=== PATIENT | female | born 1975 | race Caucasian/White ===

== ENCOUNTER 2023-10-12 08:48 | Observation (INO) | payer SELFPAY, OTHER ==
--- NOTE | 2023-10-03 11:32 | PCM.HP.BLA ---
History and Physical Date of Admission: 10/12/23 HPI: The patient is a 48 year old female presenting for pre-operative visit. She is scheduled for LAVH and bilateral salpingectomy, for adenomyosis, dyspareunia on 10/12/23. Procedure discussed along with risks, benefits and complications. Other alternatives discussed for management. Consent form signed? Yes. ? ? PAST MEDICAL HISTORY PAST MEDICAL HISTORY Diagnosis Date ? Uterine prolapse ? ? ? PAST SURGICAL HISTORY PAST SURGICAL HISTORY Procedure Laterality Date ? HIATAL HERNIA REPAIR HX ? 2019 ? REMOVAL GALLBLADDER ? 2001 ? ? ? CURRENT MEDICATIONS No current outpatient medications on file. ? No current facility-administered medications for this visit. ? ? ALLERGIES: Patient has no known allergies. ? PERSONAL HISTORY: SOCIAL HISTORY Social History ? Tobacco Use ? Smoking status: Never ? Smokeless tobacco: Never Vaping Use ? Vaping Use: Never used Substance Use Topics ? Alcohol use: Never ? Drug use: Never ? FAMILY HISTORY: FAMILY HISTORY FAMILY HISTORY Problem Relation Age of Onset ? No Known Problems Mother ? ? No Known Problems Father ? ? Breast Cancer Maternal Aunt ? ? Breast Cancer Maternal Aunt ? ? Colon Cancer Maternal Uncle ? ? Colon Cancer Maternal Grandmother ? ? ? REVIEW OF SYMPTOMS: GENERAL: denies fevers or chills ENDOCRINOLOGY: has not been on steroids Cardiology : denies palpitations or chest pain Respiratory: denies SOB or cough Hematology: denies history of prolonged bleeding or easy bruising or VTE Allergy: Denies history of personal or family history of allergy to anesthesia ? PHYSICAL EXAMINATION: ? VITALS: Blood pressure 110/68, pulse 68, resp. rate 16, height 5' 2 (1.575 m), weight 196 lb (88.9 kg), last menstrual period 09/16/2023, SpO2 97%. ? GENERAL: The patient is well nourished, well hydrated in no acute distress. , The patient is oriented to time, place, and person. NECK: Supple. No lynphadenopathy, normal thyroid, no thyromegaly. LUNGS: Clear to auscultation bilaterally. no wheezes, rhonchi or rales HEART: Regular rate and rhythm, Normal heart sounds, and No murmurs or gallops ? IMPRESSION: adenomyosis, symptomatic uterovaginal prolapse, deep dyspareunia ? PLAN: The risks/benefits/alternatives and personal involved for the planned LAVH, bilateral salpignectomy were reviewed with the patient. Her questions were answered to her satisfaction and she desires to proceed. Consent was signed. I reviewed with her postop instructions and expectations. ? Dr. Soto to perform pelvic floor repair after hyst I have reviewed and updated past medical and surgical history, medications and allergies Assessment & Plan Assessment/Plan (1) Adenomyosis: (2) Deep dyspareunia: (3) Cystocele: (4) Rectocele:
[2023-10-04 15:26] LABS: Hematocrit 44.4 % (37-47); Hemoglobin 14.2 g/dL (12.0-15.0); Mean Corpuscular Hgb 27.2 pg (27.0-32.0); Mean Corpuscular Volume 85.1 fL (81-99); Platelet Count 259 K/mm3 (150-450); RBC Distribution Width CV 13.7 % (11.6-14.6); RBC Distribution Width SD 42.3 fl (35.1-43.9); Red Blood Count 5.22 M/mm3 (4.2-5.4); White Blood Count 8.8 K/mm3 (4.4-11.0)
[2023-10-04 16:14] LABS: Magnesium 2.2 mg/dL (1.6-2.6)
[2023-10-05 09:04] LABS: Anion Gap 10 (5-15); BUN 12 mg/dL (7-18); BUN/Creat Ratio 14.8 RATIO (10-20); Calcium,Total 8.8 mg/dL (8.5-10.1); Chloride 108 mmol/L (98-107); Creatinine, Serum 0.81 mg/dL (0.55-1.02); EST Glomerular Filtration Rate 80 mL/min (>60); Est Glom Filt Rate - Afr Amer 97 mL/min (>60); Glucose 95 mg/dL (74-106); Potassium 3.8 mmol/L (3.5-5.1); Sodium Level 141 mmol/L (136-145)
[2023-10-12] VITALS (19 sets, daily range): BP systolic 103–129; BP diastolic 55–77; PULSE 70–84; RESP 8–20; TEMP 36.2–37.1; O2SAT 77–100; BMI 36.3
[2023-10-12 06:08] LABS: Internal QC Validated? YES +Cl - CLEAR BKGD; Pregnancy, Urine Negative Negative
[2023-10-12] MEDS: Acetaminophen 500 MG Tablet 1000 MG PO (06:16)
[2023-10-12 06:17] LABS: Bedside Glucose 92 mg/dL (74-106)
[2023-10-12] MEDS: Gabapentin 600 MG Tablet PO (06:17)
[2023-10-12] MEDS: Celecoxib 200 MG Capsule 400 MG PO (06:17)
[2023-10-12] MEDS: Magnesium 1 GM over 15 mins IV (06:23)
[2023-10-12] MEDS: 0.9% Normal Saline (1000mL) 1,000 ML 15 ML IV (06:29)
--- NOTE | 2023-10-12 07:30 | HYST_PTH ---
PATIENT: DEBBI MARTIN LOC: [facility] U#:[id number] AGE/SX: 48/F ROOM: NC317 RE10/12/[address]: Dr. Ayah Prater MD : [id number] BED: 1 DIS: 10/13/2023 SPEC #: [id number] RECD: 10/12/23 12:29 STATUS: ROSA M KRAUS #: [id number] NAWAF: 10/12/23 07:[address]: Ayah Prater DEPT: SURGICAL PATHOLOGY RECD BY: Aditi Roth ENTERED: 10/12/23 12:29 SP TYPE: HYSTERECT OTHR DR: MD Dr. Les Wilde MD Tissues: Uterus, NOS Procedures: Surgery Specimen Level V HEADER OPERATION: ERAS, Hysterectomy, LAVH, Bilateral salpingectomy PRE-OP DIAGNOSIS: Adenomyosis, Deep dyspareunia, Cystocele, Rectocele TISSUE SUBMITTED: Cervix, Uterus, Bilateral fallopian tubes MICROSCOPIC DIAGNOSIS Cervix, Uterus, and fallopian tubes, hysterectomy, bilateral salpingectomy: Cervix - Chronic inflammation. Endometrium - Secretory endometrium. Myometrium - An intramural leiomyoma (0.4cm in greatest dimension). Bilateral fallopian tubes- No pathologic diagnosis. SHAYNE/ 10/13/2023 MICROSCOPIC DESCRIPTION Slides are reviewed. GROSS DESCRIPTION Received in fixative is one container labeled with the patient's name and designated cervix, uterus, fallopian tubes. The specimen consists of a hysterectomy specimen consisting of cervix, uterus and detached bilateral fallopian tubes. The uterus with cervix weighs 145 gm and measures 11.0 x 6.5 x 5.5 cm. The serosal surface is clayton, glistening. The ectocervical mucosa is unremarkable. The external is is oval and patulous in contour. The endocervical canal measures 4 cm in length and the endocervical mucosa is unremarkable. The triangular endometrial cavity measures 5 cm in length and 3 cm in width. The endometrium is congested without any mass lesion and measures 0.1 cm in thickness. Sections of the uterine wall review a small nodular mass measuring 0.4 cm in greatest dimension. Uterine wall measures up to 3cm in thickness. The detached fallopian tubes are not identified as right or left and each measure 3.5cm in length and 0.5 in diameter. The fimbrial end is identified. Sections reveal unremarkable cut surfaces. Technical Sme sections are submitted in 9 cassettes as follows: 1 - anterior cervix, 2 - posterior cervix, 3 & 4 - anterior uterine wall, 5 & 6 - posterior uterine wall, 7 - nodular mass, 8 - one fallopian tube, 9 - second fallopian tube. SHAYNE: 10/12/23 TC:1 CPT: 04741
[2023-10-12] MEDS: Ondansetron 4 MG/2 ML Vial IV (07:37)
[2023-10-12] MEDS: Cefazolin 2 GM in 0.9% Normal Saline (100mL Bag) 100 ML IV (07:37)
[2023-10-12] MEDS: dexAMETHasone 4 MG/ML Vial 8 MG IV (07:37)
[2023-10-12] MEDS: Bupivacaine Mpf 0.5% 30 ML VIAL (08:03)
[2023-10-12] MEDS: Lidocaine 1%/Epi 1:200 (30ml) 30 ML AMPUL (08:35)
[2023-10-12] MEDS: Estrogens,Conj. 1 Tube 1 DOSE (08:35)
--- NOTE | 2023-10-12 08:42 | PCM.OPRPT ---
Problems Associated Problem List Diagnoses (1) Rectocele: (2) Cystocele: Report of Operation Date of Procedure: 10/12/23 Pre-Operative Diagnosis: Incomplete uterovaginal prolapse, stress urinary incontinence Post-Operative Diagnosis: Same Surgery/Procedure Performed:: posterior repair, mid urethral sling insertion, bilateral ureteral catheterization, cystoscopy Surgeon: Aida Soto Type of Anesthesia: General Estimated Blood Loss (mL): 50 cc Description of Procedure: The patient is a 48-year-old with pelvic organ prolapse and stress incontinence who presents for surgical intervention. She underwent a laparoscopic-assisted vaginal hysterectomy with closure of cuff per Dr. Prater. The case was then turned over to oh. A Sung catheter was already indwelling and draining. She was placed into exaggerated dorsolithotomy position and the catheter was removed. The cystoscope was inserted through the urethra under direct visualization into the urinary bladder. The bladder mucosa was visualized in its entirety revealing no evidence of mass, erythema, injury or foreign body. The left ureteral orifice was intubated with a 5 Divehi whistle-tip catheter that easily advanced to 20 cm without difficulty. On the right side there was some distal J hooking of the ureter, however a strong ureteral jet was clearly observed. At this time the cystoscope was removed and the Sung catheter was reinserted and the balloon was inflated. On evaluation of her vagina, the vault length was short, not room for sacrospinous ligament fixation. There was no cystocele defect identified. Posteriorly there was a distal defect. The posterior vaginal wall was isolated and injected submucosally with lidocaine with epinephrine for hydrostatic dissection and hemostatic control. A midline incision was made and careful dissection was performed using blunt and sharp techniques until the rectovaginal fascia was identified. As this dissection was performed, multiple large arterial vessels were identified and ligated with suture secondary to bleeding. The bleeding was quickly controlled. The vaginal mucosa was very weak and tore very easily. The rectovaginal fascia was brought together in interrupted 2-0 Vicryl with a 2 layer closure. The posterior weakness was resolved. The vaginal mucosa was then closed over the repair with running interlocking 2-0 Vicryl. Attention was then turned towards the mid urethra where it was isolated and injected submucosally with lidocaine. A midline vertical incision approximately 2 cm in length was made. Sharp and blunt dissection was performed on either side of the urethra with care being taken to avoid entry into the urethra or the vaginal mucosa. Using the trocars provided, the Altis mid urethral sling was inserted with the tines into the obturator complexes bilaterally. Care was taken to avoid entrance into the vaginal mucosa. Once the sling was positioned against the urethra and a flat nature, tensioning suture was cut and the incision was closed using running interlocking 2-0 Vicryl. The Sung catheter was then removed and the cystoscope was inserted through the urethra under direct visualization. At this time the right aspect of the cuff line was seen to be oozing and the gynecology team was called in for reevaluation. The cystoscopy revealed no evidence of foreign body, hemorrhage or injury. Once again the left ureter was easily intubated with a 5 Divehi whistle-tip catheter. On the right a 0.035 Glidewire easily passed and advanced and was used for placement of a Pollick catheter which was advanced to 20 cm. Good urine was seen coming from the distal aspect of the catheter. This was left in place for repeat laparoscopy. The cystoscope was removed and the Sung catheter was reinserted to straight drain. The case was then turned back over to gynecology for completion. Grafts/Implants Used: Altis mid urethral sling Complications None Admit VTE Documentation VTE Present on Admission: Yes VTE Mechan Device Prophylaxis: SCD's VTE Pharm Prophylaxis ordered?: Yes
--- NOTE | 2023-10-12 08:49 | DCINST_ITS ---
Discharge Instructions Diet Discharge Diet: No restrictions Activity Discharge Activity: May Shower May resume sexual activity in: 8 weeks Lifting Restrictions: 5 pounds Additional Activity Instructions:: No strenuous activity, exercise, vacuuming, tub bathing, swimming or hot tubs Dressing / Incision Call your doctor if your incision/area has: Continuous Slow Oozing, Sudden Increased Bleeding, Increased Pain/ Swelling, Increased Redness, Foul Smelling Discharge and Swelling at the incision site Call your doctor if you observe: Fever of 101 or Higher, Inability to urinate and Inability to have a bowel movement Follow Up Care Please Follow Up With: Aida Soto MD When: The office will call the patient to make arrangements for follow-up. Test Results: Test results from this visit will be discussed in further detail at your follow- up appointment, if applicable. Discharge Plan Admission Admit Date/Time: 10/12/23 08:48 Attending Provider: Ayah Prater Primary Care Provider: Les Carter Consulting Providers: Aida Soto Discharge Orders/Prescriptions Prescriptions: New oxycodone-acetaminophen [Percocet] 5-325 mg tablet 1 tab PO Q8H PRN (Reason: pain) 3 Days Qty: 10 0RF cephalexin [cephalexin] 500 mg capsule 500 mg PO Q12 3 Days Qty: 6 0RF Continued digestive enzymes Capsule 1 cap PO DAILY Rx Instructions: administer with food; swallow whole; do not crush/chew/dissolve/break/cut beta-travon 1 cap PO BID hep-3 1 cap PO DAILY mallow leaf 1 tsp PO TID Disposition Disposition (needs filled in before D/C Order can be placed): Home, Self Care
--- NOTE | 2023-10-12 09:49 | PCM.OPRPT ---
Problems Associated Problem List Diagnoses (1) Deep dyspareunia: (2) Adenomyosis: Report of Operation Date of Procedure: 10/12/23 Pre-Operative Diagnosis: adenomyosis, dyspareunia Post-Operative Diagnosis: same Surgery/Procedure Performed:: LAVH, bilateral salpingectomy Description of Surgical Findings:: boggy uterus, normal tubes and ovaries, normal anterior and posterior culdesac. Appendix not visualized Surgeon: Ayah Prater property utilization manager: Preeti Aguilar property utilization manager: Vale Alvarez [facility] Type of Anesthesia: General Anesthesiologist: Omer Kwan Special Medications: none Specimen's removed: uterus, cervix, bilateral fallopian tubes Drains: guzmán Estimated Blood Loss (mL): 150 Fluids Replaced: pending finish of case Description of Procedure: The patient was taken to the operating room where she was prepped and draped in the dorsal lithotomy position. Her arms were tucked to the side and padded and her legs were placed in the yellowfin stirrups. Care was taken to ensure that she was placed in a neurologically safe and neutral position. A weighted speculum was placed in the vagina and the anterior lip of the cervix was grasped with a single-tooth tenaculum. The uterus sounded to 9 centimeters. The Salima uterine manipulator was placed and secured. The Guzmán catheter was placed to straight drain. Attention was turned to the abdominal portion of the case. Before skin incisions were made they were infiltrated with 0.5% Marcaine solution for local anesthetic. A 5 mm intraumbilical incision was made and while tenting the anterior abdominal wall up with towel clamps a 5 mm blade less trocar and sleeve were advanced directly into the peritoneal cavity using the Visiport. Peritoneal placement was confirmed with the laparoscope the pneumoperitoneum was created, and the underlying abdominal contents were intact. The patient was placed in Trendelenburg and the above findings were noted. Right and left lateral 5 mm trochars were placed under direct visualization without difficulty. The antimesenteric portion of the tube was clamped sealed and transected serially on both sides with the LigaSure device. The round ligaments were clamped sealed and transected and a window was made in the peritoneum. The utero-ovarian ligaments were then clamped, sealed and transected with the LigaSure device and the pedicles were hemostatic The bladder flap was dissected down with the LigaSure device and blunt dissection and the uterine arteries were then skeletonized. The uterine arteries were clamped, sealed and transected on both sides with the LigaSure device. At this point the pedicles were all examined and found to be hemostatic. Attention was turned to the vaginal portion of the case. 1% lidocaine with dilute epinephrine solution was used to infiltrate the anterior vaginal epithelium over the cervix. An incision was made across the entire peritoneum around the cervix. The peritoneum was dissected back with blunt and sharp dissection. The posterior cul-de-sac was entered sharply with the Bauer scissors. The peritoneum posterior peritoneum was tagged. The anterior colpotomy incision was made. The uterosacral ligaments were clamped, transected and suture-ligated. The lower portion of the cardinal ligament on both sides was clamped, transected and suture-ligated. The uterus was then free on the patient's left side. There was 1 more pedicle on the patient's right side this was clamped with a Edilia clamp, transected and during suture ligature, the suture broke. The pedicle was then regrasped with a Hortencia clamp. It was suture-ligated. The uterus and cervix were removed through the vagina. However there was still some oozing around the edges of the pedicle and another Hortencia clamp was needed to clamp the area and another suture ligature was placed around it. There is some bleeding then between sutures on the right sidewall and this was grasped with an Allis clamp and a [id number] placed around it. There was some bleeding from the posterior cuff. The posterior cuff peritoneum was tacked to the cuff with a running 0 Vicryl locked suture. Some hemoblast was placed over the pedicles and pressure held for 2 minutes. There is no active bleeding noted. The vaginal cuff was then reapproximated horizontally with interrupted 0 Vicryl [id number] sutures. The laparoscope was reinserted into the abdomen and the pneumoperitoneum was re-created. The pedicles were reexamined and found to be hemostatic. The vaginal cuff was hemostatic. Trever was placed over the peritoneal edges and no active bleeding was noted through the Trever. The right and left lateral ports were taken out and the sites were hemostatic. The pneumoperitoneum was released and even under low pressure there was no bleeding of any of the pedicles are vaginal cuff. The umbilical port was removed. The umbilical skin incisions were closed with Monocryl suture and skin glue by Dr. Aguilar. The vaginal instruments were removed by me and a vaginal sweep was completed by me. I performed the majority of the procedure. Dr. Aguilar provided tissue manipulation, camera guidance and assistance with her side of the surgery. The surgery was performed by me with assistance other than the portions dictated as above. There were no qualified residents available for this procedure. All sponge lap and needle counts were correct and Dr. Soto then began her portion of the case. That is to be dictated separately. Total fluids will be entered at the end of the case. EBL for my portion with 150 cc. Final ABL pending. Grafts/Implants Used: none Procedure Start Time: 08:03 Procedure Stop Time: 09:28 Complications none Admit VTE Documentation VTE Present on Admission: No VTE Mechan Device Prophylaxis: SCD's VTE Pharm Prophylaxis ordered?: No
[2023-10-12] MEDS: Lactated Ringers @ 70 MLS/HR 70 ML IV (12:23)
[2023-10-12] MEDS: Cefazolin 1 GM/50 ML BAG IV ×2 (15:21→23:36)
[2023-10-12 16:48] LABS: Hematocrit 46.3 % (37-47); Mean Corp Hgb Conc 32.4 g/dL (32-36); Mean Corpuscular Volume 86.5 fL (81-99); Mean Platelet Vol. 9.7 fl (6.2-12.0); Platelet Count 226 K/mm3 (150-450); RBC Distribution Width CV 13.9 % (11.6-14.6); RBC Distribution Width SD 43.6 fl (35.1-43.9); Red Blood Count 5.35 M/mm3 (4.2-5.4); White Blood Count 13.3 K/mm3 (4.4-11.0)
[2023-10-12 17:01] LABS: Anion Gap 6 (5-15); BUN 11 mg/dL (7-18); Calcium,Total 8.2 mg/dL (8.5-10.1); Chloride 110 mmol/L (98-107); EST Glomerular Filtration Rate 57 mL/min (>60); Est Glom Filt Rate - Afr Amer 68 mL/min (>60); Estimated Creatinine Clearance 65.97 ml/min; Glucose 148 mg/dL (74-106); Potassium 4.2 mmol/L (3.5-5.1); Sodium Level 139 mmol/L (136-145)
[2023-10-12] MEDS: oxyCODONE 5 MG Tablet PO ×2 (17:18→23:43)
[2023-10-12] MEDS: Lactated Ringers 1,000 ML 100 ML IV (17:22)
[2023-10-13 02:00] VITALS: RESP 15
[2023-10-13 03:28] VITALS: BP 108/58; PULSE 71; RESP 15; TEMP 36.8; O2SAT 97
[2023-10-13] MEDS: Lactated Ringers 1,000 ML 100 ML IV (04:45)
[2023-10-13 06:08] LABS: Hematocrit 42.3 % (37-47); Hemoglobin 13.9 g/dL (12.0-15.0); Mean Corp Hgb Conc 32.9 g/dL (32-36); Mean Corpuscular Hgb 28.3 pg (27.0-32.0); Mean Corpuscular Volume 86.2 fL (81-99); Mean Platelet Vol. 9.8 fl (6.2-12.0); Platelet Count 259 K/mm3 (150-450); RBC Distribution Width CV 14.2 % (11.6-14.6); Red Blood Count 4.91 M/mm3 (4.2-5.4); White Blood Count 15.5 K/mm3 (4.4-11.0)
[2023-10-13 08:02] VITALS: BP 115/67; PULSE 70; RESP 18; TEMP 36.6; O2SAT 99
[2023-10-13] MEDS: oxyCODONE 5 MG Tablet PO ×2 (08:04→15:05)
--- NOTE | 2023-10-13 08:15 | PCM.PN.GU ---
Subjective Subjective No issues overnight. She is ambulating and passing gas. Objective Data Objective Data Vital Signs: Vital Signs Temp Pulse Resp BP Pulse Ox O2 Del Method O2 Flow Rate 97.8 F 70 18 115/67 99 Room Air 4 10/13/23 08:02 10/13/23 08:02 10/13/23 08:02 10/13/23 08:02 10/13/23 08:02 10/13/23 08:02 10/12/23 13:45 Oxygen Flow Rate (L/min) 4 Oxygen Delivery Method Room Air Weight: 90.083 kg Body Mass Index (BMI) 36.3 Intake & Output: Intake and Output for Last 24 Hours 10/11/23 10/12/23 10/13/23 23:59 23:59 23:59 Intake Total 2529.5 / 2729.5 1400 / 1400 Output Total 1875 / 1875 1000 / 1000 Balance 654.5 / 854.5 400 / 400 Lab / Micro Data 10/13/23 05:55 10/12/23 16:33 Labs: Laboratory Results - last 24 hr 10/12/23 16:33: WBC 13.3 H, RBC 5.35, Hgb 15.0, Hct 46.3, MCV 86.5, MCH 28.0, MCHC 32.4, RDW Std Deviation 43.6, RDW Coeff of Reji 13.9, Plt Count 226, MPV 9.7, Sodium 139, Potassium 4.2, Chloride 110 H, Carbon Dioxide 23.0, Anion Gap 6, BUN 11, Creatinine 1.10 H, Estim Creat Clear Calc 65.97, Est GFR (MDRD) Af Amer 68, Est GFR (MDRD) Non-Af 57 L, BUN/Creatinine Ratio 10.0, Glucose 148 H, Calcium 8.2 L 10/13/23 05:55: WBC 15.5 H, RBC 4.91, Hgb 13.9, Hct 42.3, MCV 86.2, MCH 28.3, MCHC 32.9, RDW Std Deviation 44.0 H, RDW Coeff of Reji 14.2, Plt Count 259, MPV 9.8 Physical Exam Narrative abdomen soft. urine clear. guzmán and packing removed without incident. Const alert, oriented x3 and no apparent distress Assessment & Plan Assessment/Plan (1) Rectocele: (2) Adenomyosis: PLAN: Plan trial of void home later today
--- NOTE | 2023-10-13 08:59 | PCM.PN.OB ---
Subjective Subjective pain well controlled, minimal spotting. Vaginal packing removed by Dr. Soto earlier this am. Denies CP/SOB. Objective Data Objective Data Vital Signs: Vital Signs Temp Pulse Resp BP Pulse Ox O2 Del Method O2 Flow Rate 97.8 F 70 18 115/67 99 Room Air 4 10/13/23 08:02 10/13/23 08:02 10/13/23 08:02 10/13/23 08:02 10/13/23 08:02 10/13/23 08:33 10/12/23 13:45 Oxygen Flow Rate (L/min) 4 Oxygen Delivery Method Room Air Weight: 90.083 kg Body Mass Index (BMI) 36.3 Intake & Output: Intake and Output for Last 24 Hours 10/11/23 10/12/23 10/13/23 23:59 23:59 23:59 Intake Total 2529.5 / 2729.5 1400 / 1400 Output Total 1875 / 1875 1000 / 1000 Balance 654.5 / 854.5 400 / 400 Lab / Micro Data 10/13/23 05:55 10/12/23 16:33 Labs: Laboratory Results - last 24 hr 10/12/23 16:33: WBC 13.3 H, RBC 5.35, Hgb 15.0, Hct 46.3, MCV 86.5, MCH 28.0, MCHC 32.4, RDW Std Deviation 43.6, RDW Coeff of Reji 13.9, Plt Count 226, MPV 9.7, Sodium 139, Potassium 4.2, Chloride 110 H, Carbon Dioxide 23.0, Anion Gap 6, BUN 11, Creatinine 1.10 H, Estim Creat Clear Calc 65.97, Est GFR (MDRD) Af Amer 68, Est GFR (MDRD) Non-Af 57 L, BUN/Creatinine Ratio 10.0, Glucose 148 H, Calcium 8.2 L 10/13/23 05:55: WBC 15.5 H, RBC 4.91, Hgb 13.9, Hct 42.3, MCV 86.2, MCH 28.3, MCHC 32.9, RDW Std Deviation 44.0 H, RDW Coeff of Reji 14.2, Plt Count 259, MPV 9.8 Physical Exam Narrative Awake, alert, NAD abd soft- mildly, softly, appropriately distended incisions- clean, dry and intact Assessment & Plan (1) Adenomyosis: PLAN: Plan POD#1 s/p LAVH, bilateral salpingectomy, hgb stable, doing wel. Ok to d/c home from licensed funeral director and embalmer perspective voiding trials per urology
--- NOTE | 2023-10-13 09:53 | PHA.DC_ITS ---
Pharmacy [facility] has performed discharge medication reconciliation and counseling for this patient. The patient's discharge medication list was reviewed for discrepancies and discrepancies were resolved. The patient was counseled on the following discharge medications and changes in medications for homegoing were reviewed. The Reason for Use, instructions for use, and potential side effects were reviewed for all new medications. The patient's questions regarding all of their medications were answered. 1. Cephalexin 500 mg PO BID x 3 days 2. Oxycodone/acetaminophen 5/325 mg PO Q8H PRN pain The patient was able to verbally demonstrate an understanding of their discharge medications. Medications at Discharge Home Medications digestive enzymes 1 cap PO DAILY 10/04/23 beta-travon 1 cap PO BID 10/12/23 cephalexin 500 mg capsule 500 mg PO Q12 post-operative 3 days #6 CAPSULES 10/12/23 hep-3 1 cap PO DAILY 10/12/23 mallow leaf 1 tsp PO TID 10/12/23 oxycodone-acetaminophen 5 mg-325 mg tablet (Percocet) 1 tab PO Q8H PRN pain 3 days #10 tabs 10/12/23
[2023-10-13 10:40] VITALS: BP 119/56; PULSE 72; RESP 18; TEMP 36.5; O2SAT 100
[2023-10-13 14:50] VITALS: BP 113/66; PULSE 77; RESP 18; TEMP 37.1; O2SAT 99
== END 2023-10-13 17:49 | disposition home or self-care (01) ==
LOC: SDC 13:23 → MS3 13:23
PROVIDERS: Anesthesiology; Obstetrics & Gynecology; Urology; Admitting Provider Obstetrics & Gynecology; PCP Family Medicine; Referring Provider Obstetrics & Gynecology; Visit Provider Obstetrics & Gynecology
PROC: 0UT9FZZ Resection of Uterus, Via Natural or Artificial Opening With Percutaneous Endoscopic Assistance (ICD-10-PCS; CPT 58552; principal; 2023-10-12 07:05)
PROC: (CPT 57260; 2023-10-12 07:05)
DX: N80.03 Adenomyosis of the uterus (principal); N81.4 Uterovaginal prolapse, unspecified; N39.3 Stress incontinence (female) (male); D25.1 Intramural leiomyoma of uterus; N94.12 Deep dyspareunia
CPT/HCPCS: 57288; 57250; 58552; 36415; 80048; 81025; 82962; 83735; 85027; 86850; 86900; 86901; 88307; 94668; 96361; 96365; 96366; 99221; 99252; J7120; C1758; C1769; G0378; G0463; J2405; J3475